=== PATIENT | male | born 1970 | race Caucasian/White ===

== ENCOUNTER 2017-10-06 13:12 | Emergency (ER) | payer BC ==
[2017-10-06] MEDS ORDERED: MECLIZINE 25 MG TABLET PO ONE ×2 (13:39→16:02)
--- NOTE | 2017-10-06 13:45 | Emergency Department Record ---
History of Present Illness - General Chief Complaint: Dizziness Stated Complaint: DIZZY Time Seen by Provider: 10/06/17 13:34 Source: Patient Mode of Arrival: Ambulatory Limitations: No limitations - History of Present Illness Initial Comments: 46 yo male presents to ED for evaluation of "dizziness" that began this morning upon awakening. Patient reports that he feels fine when supine, however states that sitting up and ambulating result in worsening of his vertigo symptoms. Patient denies health problems at his baseline other than benign tremor and GERD. Patient denies focal weakness on examination, denies fevers, chills, or recent illness, and denies change in vision. MD Complaint: Dizziness Onset/Timin -: Hour(s) Timing: Awoke with symptoms Description: Difficulty walking, Lightheadedness, Nausea, Other History of Same: No History of Trauma: No Improves With: Rest, Other Worsens With: Position Associated Symptoms: Denies other symptoms - [place] Coma Scale Eye Response: (4) Open spontaneously Motor Response: (6) Obeys commands Verbal Response: (5) Oriented Martha Total: 15 - Related Data Home Medications Medication Instructions Recorded Confirmed Last Taken Budesonide/Formoterol Fumarate 2 puff INH BID 10/06/17 10/06/17 10/05/17 [Symbicort 80-4.5 Mcg Inhaler] Previous Rx's Medication Instructions Recorded Meclizine HCl [Antivert] 25 mg PO Q8H PRN #15 tablet 10/06/17 Ondansetron [Zofran Odt] 4 mg PO Q8H PRN #15 tab.rapdis 10/06/17 Allergies Allergy/AdvReac Type Severity Reaction Status Date / Time No Known Drug Allergies Allergy Verified 10/06/17 13:31 Travel Screening - Travel/Exposure Within Last 30 Days Have you traveled within the last 30 days?: No - Travel/Exposure Within Last Year Have you traveled outside the [place] in the last year?: No - Additonal Travel Details Have you been exposed to anyone with a communicable illness?: No - Travel Symptoms Symptom Screening: None Review of Systems Constitutional: Denies: Chills, Fever, Malaise, Night sweats Eyes: Denies: Eye discharge, Eye pain ENT: Denies: Congestion, Ear pain, Epistaxis Respiratory: Denies: Cough, Dyspnea Cardiovascular: Denies: Chest pain, Dyspnea on exertion, Palpitations Endocrine: Denies: Fatigue, Heat or cold intolerance Gastrointestinal: Reports: Nausea. Denies: Abdominal pain, Vomiting Genitourinary: Denies: Incontinence, Retention Musculoskeletal: Denies: Arthralgia, Back pain Skin: Denies: Bruising, Change in color Neurological: Denies: Abnormal gait, Confusion, Headache, Seizure Psychiatric: Denies: Anxiety Hematological/Lymphatic: Denies: Anemia, Blood Clots Past Medical History - SOCIAL HISTORY Smoking Status: Never smoker Alcohol Use: Occasional Drug Use: None - RESPIRATORY Hx Respiratory Disorders: No - CARDIOVASCULAR Hx Cardio Disorders: No - NEURO Hx Neuro Disorders: Yes Comment:: essential tremor - GI Hx GI Disorders: No - Hx Genitourinary Disorders: No - ENDOCRINE Hx Endocrine Disorders: No - MUSCULOSKELETAL Hx Musculoskeletal Disorders: Yes Comment:: Hand trembles - PSYCH Hx Psych Problems: No - HEMATOLOGY/ONCOLOGY Hx Hematology/Oncology Disorders: No Family Medical History Any Significant Family History?: No Physical Exam - General General Appearance: Alert, Oriented x3, Cooperative, Mild distress Limitations: No limitations - Head Head exam: Atraumatic, Normocephalic, Normal inspection Head exam detail: negative: Abrasion, Contusion, Mehta's sign, General tenderness, Hematoma, Laceration - Eye Eye exam: Nystagmus (Horizontal nystagmus with fast beat to the right only, no vertical nystagmus, no skew, and HIT appears normal.). negative: Conjunctival injection, Periorbital swelling, Periorbital tenderness, Scleral icterus - ENT Ear exam: negative: Auricular hematoma, Auricular trauma Nasal Exam: negative: Active bleeding, Discharge, Dried blood, Foreign body Mouth exam: negative: Drooling, Laceration, Muffled voice, Tongue elevation - Neck Neck exam: Normal inspection. negative: Meningismus, Tenderness - Respiratory Respiratory exam: Normal lung sounds bilaterally. negative: Rales, Respiratory distress, Rhonchi, Stridor - Cardiovascular Cardiovascular Exam: Regular rate, Normal rhythm, Normal heart sounds - GI/Abdominal GI/Abdominal exam: Soft. negative: Rebound, Rigid, Tenderness - Rectal Rectal exam: Deferred - exam: Deferred - Extremities Extremities exam: Normal inspection. negative: Calf tenderness, Pedal edema, Tenderness - Back Back exam: Denies: CVA tenderness (R), CVA tenderness (L) - Neurological Neurological exam: Alert, Normal gait, Oriented X3 - Psychiatric Psychiatric exam: Normal affect, Normal mood - Skin Skin exam: Normal color. negative: Abrasion Type of lesion: negative: abrasion Course Vital Signs 10/06/17 13:14 Temperature 98.1 F Pulse Rate 72 Respiratory 16 Rate Blood Pressure 105/82 Pulse Ox 95 - Reevaluation(s) Reevaluation #1: 10/06/17 14:24 Labs reviewed and are grossly unremarkable for an acute process. Reevaluation #2: 10/06/17 14:28 Patient was reassessed and updated on all results, patient reports that he is feeling much better. Will perform ambulation trial and reassess. Reevaluation #3: 10/06/17 15:21 Patient is ambulating with steady gait, reports that he is feeling much improved , and appears stable for discharge at this time. Patient's HINTS examination is reassuring, no evidence for cerebellar abnormality on examination. Patient appears stable for discharge at this time. Medical Decision Making - Lab Data Result diagrams: 10/06/17 13:50 10/06/17 13:50 Disposition Disposition: Discharge Clinical Impression: Vertigo Disposition: Home, Self-Care Condition: (2) Stable Instructions: Dizziness (ED) Additional Instructions: Return to ED if your symptoms worsen or if you have any concerns. Antivert, Zofran as directed. Follow-up with your family doctor in 3-5 days as directed. Prescriptions: Meclizine HCl [Antivert] 25 mg PO Q8H PRN #15 tablet PRN Reason: Dizziness Ondansetron [Zofran Odt] 4 mg PO Q8H PRN #15 tab.rapdis PRN Reason: Nausea/Vomiting Forms: Patient Portal Access Time of Disposition: 15:21 Quality - Quality Measures Quality Measures: N/A - Blood Pressure Screening Does Patient Have Any of the Following: No Blood Pressure Classification: Pre-Hypertensive BP Reading Systolic Measurement: 105 Diastolic Measurement: 82 Screening for High Blood Pressure: < Pre-Hypertensive BP, F/U Documented > [ [id number]] Pre-Hypertensive Follow-up Interventions: Referral to alternative/primary care provider.
[2017-10-06 13:57] LABS: HEMATOCRIT 45.5 % (42.0-52.0); HEMOGLOBIN 16.1 gm/dl (14.0-18.0); MEAN CELL VOLUME 90.8 fl (81-97); MEAN CORPUSCULAR HEMOGLOBIN 32.1 pg (27-33); MEAN CORPUSCULAR HGB CONC 35.4 g/dl (32-36); MEAN PLATELET VOLUME 9.3 fl (7.4-10.4); PLATELET COUNT 187 K/uL (130-400); RED BLOOD COUNT 5.01 M/uL (4.40-5.70); RED CELL DISTRIBUTION WIDTH 12.3 % (11.5-14.5)
[2017-10-06 14:11] LABS: BLOOD UREA NITROGEN 11 mg/dL (6-20); CREATININE 0.7 mg/dL (0.7-1.2); EST GLOMERULAR FILTRATION RATE > 60 mL/min
[2017-10-06 14:12] LABS: TOTAL PROTEIN 7.2 g/dL (6.6-8.7)
[2017-10-06 14:14] LABS: GLUCOSE,RANDOM 128 mg/dL (74-109)
[2017-10-06 14:17] LABS: ALB/GLOB RATIO 1.4 (1.1-1.8); ALBUMIN 4.2 g/dL (4.0-5.0); ALKALINE PHOSPHATASE 103 U/L (40-129); ALT/SGPT 38 U/L (<41); AST/SGOT 28 U/L (10.0-50.0)
[2017-10-06] MEDS ORDERED: ONDANSETRON 4 MG ODT TABLET SL ONE ×3 (14:37→16:02)
== END 2017-10-06 16:18 | disposition home or self-care (01) ==
LOC: ER 13:12
DX: R42 Dizziness and giddiness (principal); R11.0 Nausea; R26.2 Difficulty in walking, not elsewhere classified
CPT/HCPCS: 80053; 85027; 99283